=== PATIENT | male | born 1975 | race Caucasian/White ===

== ENCOUNTER 2023-01-29 20:59 | Outpatient (CLI) | payer BC, SELFPAY | END 2023-01-29 21:00 | disposition home or self-care (01) | LOC: SLEEP 21:00 | PROVIDERS: PCP Physician Assistant; Visit Provider Nurse Practitioner | DX: G47.33 Obstructive sleep apnea (adult) (pediatric) (principal) | CPT/HCPCS: 95810 ==

== ENCOUNTER 2024-04-17 11:28 | Emergency (ER) | payer BC, SELFPAY ==
[2024-04-17 11:42] VITALS: BP 124/72; PULSE 75; RESP 16; TEMP 35.9; O2SAT 97; BMI 31.1
--- NOTE | 2024-04-17 12:08 | CRLHL7_ITS ---
For Patients: As a result of the Century Cures Act, medical imaging exams and procedure reports are released immediately into your electronic medical record. You may view this report before your referring provider. If you have questions, please contact your health care provider. INDICATION: Mid back pain. COMPARISON: None Technique : Noncontrast CT thoracic spine. FINDINGS: Midthoracic curve convex to the right. In sagittal plane, normal vertebral body facet alignment. No fractures. No vertebral body loss of height. No spondylolisthesis. No fractures of the visualized ribs. No prominent disc protrusions or herniations. No spinal canal or neural foraminal narrowing at all levels of the thoracic spine. Normal paraspinal soft tissues. Visualized lungs are clear. IMPRESSION: 1. Midthoracic curve convex to the right. 2. Otherwise normal alignment. No fractures 3. No spinal canal or neural foraminal narrowing at all levels. Please note that all CT scans at this facility use dose modulation, iterative reconstruction, and/or weight-based dosing when appropriate to reduce radiation dose to as low as reasonably achievable. Dictated by Chase Davalos MD @ 04/17/2024 12:46:45 PM (Electronically Signed)
--- NOTE | 2024-04-17 12:09 | ED.GENADULT ---
HPI - General Adult General Chief complaint: Abdominal Pain Stated complaint: Abdominal pain wrap around to back Time Seen by Provider: 04/17/24 11:50 History of Present Illness HPI narrative: Patient is a 48 year white male was recently in the [place] [facility]. He had a workup for abdominal pain and back pain. He reports pain in his left flank radiating to his back but he describes it primarily starting along his paraspinous muscles in the thoracic spine no dysuria, frequency, fevers chills he is here for a 2nd opinion. He does take medicine from a chronic pain clinic for which he has got chronic musculoskeletal pain, he takes oxycodone when pain is severe and I believe [place] and at baseline. He has got a mental health history degenerative joint disease COPD history of melanoma that was apparently in his skin but not metastatic. His information from [facility] as reviewed he had a history of a CT scan and a CT angio of his abdomen showed no acute abnormalities in [place] this was in the last couple of days he was thought to have musculoskeletal pain in his left back patient had a CT scan that is reviewed of his abdomen that showed no active GI bleeding no acute abdominal or pelvic abnormality this was from 04/15/2024 patient had a chest x-ray that showed no acute changes his laboratory studies other than showing a dilutional hemoglobin from IV fluid on a follow-up visit there was unremarkable his D-dimer was negative. He presents as I mentioned to the ER with for a ?2nd opinion? he also has mentions in passing that his pain clinic doctor has ?retired and ?. He does report that he has both his pain medicines at home. Related Data Home Medications ?Medication ?Instructions ?Recorded ?Confirmed aspirin 81 mg tablet,delayed 81 mg PO DAILY 04/17/24 04/17/24 release buspirone 30 mg tablet 30 mg PO BID 04/17/24 04/17/24 duloxetine 30 mg capsule,delayed mg PO 04/17/24 release duloxetine 60 mg capsule,delayed 60 mg PO DAILY 04/17/24 04/17/24 release hydrocodone 7.5 mg-acetaminophen 1 tab PO BID PRN 04/17/24 04/17/24 325 mg tablet lorazepam 0.5 mg tablet 0.5 mg PO BID PRN anxiety 04/17/24 04/17/24 metformin 500 mg tablet,extended 1,000 mg PO BID 04/17/24 04/17/24 release 24 hr rosuvastatin 20 mg tablet 20 mg PO QPM 04/17/24 04/17/24 semaglutide (weight loss) 0.5 0.5 mg subcut 04/17/24 mg/0.5 mL subcutaneous pen injector (Garth) trazodone 50 mg tablet 50 mg PO QPM 04/17/24 04/17/24 Previous Rx's ?Medication ?Instructions ?Recorded prednisone 20 mg tablet 20 mg PO BID #10 tabs 04/17/24 Allergies Allergy/AdvReac Type Severity Reaction Status Date / Time naproxen Allergy Unknown Verified 04/17/24 11:47 Review of Systems Status of ROS: Reports: 6 or more systems reviewed and unremarkable except as noted in History and below Exam Narrative: Exam Narrative: Objective: In general patient is alert oriented does not appear in any distress his vital signs look within normal limits HEENT is unremarkable no facial asymmetry Neck is supple None he has got some mild paraspinal back tenderness along his thoracic mid and lower spine. Low back shows no findings Pulses regular Abdomen is benign soft nontender no mass or peritonitis. Extremities are no edema neurologic nonfocal in upper lower extremities. No bowel or bladder changes. Const: Vital Signs, click to edit/add: Vital Signs - 24 hr 04/17/24 11:42 Temperature 96.6 F L Pulse Rate [Pulse Oximeter] 75 Respiratory Rate 16 Blood Pressure [Ri ght Upper Arm] 124/72 Pulse Oximetry 97 Oxygen Delivery Me thod Room Air Course Vital Signs Vital signs: Initial Vital Signs Temperature 96.6 F L 04/17/24 11:42 Temperature Source Temporal Artery Scan 04/17/24 11:42 Pulse Rate 75 04/17/24 11:42 Respiratory Rate 16 04/17/24 11:42 Blood Pressure 124/72 04/17/24 11:42 Blood Pressure Mean 89 04/17/24 11:42 Blood Pressure Position Sitting 04/17/24 11:42 Pulse Oximetry 97 04/17/24 11:42 Oxygen Delivery Method Room Air 04/17/24 11:42 Vital Signs Temperature 96.6 F L 04/17/24 11:42 Pulse Rate 75 04/17/24 11:42 Respiratory Rate 16 04/17/24 11:42 Blood Pressure 124/72 04/17/24 11:42 Pulse Oximetry 97 04/17/24 11:42 Oxygen Delivery Method Room Air 04/17/24 11:42 Temperature 96.6 F L 04/17/24 11:42 Pulse Rate 75 04/17/24 11:42 Respiratory Rate 16 04/17/24 11:42 Blood Pressure 124/72 04/17/24 11:42 Pulse Oximetry 97 04/17/24 11:42 Oxygen Delivery Method Room Air 04/17/24 11:42 Medications Administered Medications: Discontinued Medications Generic Name Dose Route Start Last Admin Trade Name Laura PRN Reason Stop Dose Admin Prednisone 50 mg 04/17/24 13:04 04/17/24 13:16 Prednisone 10 Mg Tablet PO 04/17/24 13:05 50 mg ONCE ONE Administration Medical Decision Making MDM Narrative Medical decision making narrative: [age] year white male with multifactorial medical illnesses including mental healt, chronic pain, and organic medical illness presents with left thoracic back pain that he is feels radiates around little bit to his anterior abdomen. He has had CT scans within the last 48 hours that were unremarkable, laboratory studies were unremarkable as well, D-dimer negative. At this point I think it be reasonable only to get a thoracic CT to make sure he does not have a disc issue, I think some oral steroids for him might be helpful actually if this is a musculoskeletal issue or a nerve either inflammatory or anatomic compression issue in his thoracic spine. I will prescribe a Medrol Dosepak. He can continue his home pain medications, and follow-up the pain clinic as scheduled, would also recommend he sees regular doctor within the next couple of days. Will check his laboratory studies to make sure there is no obvious change in these. And disposition as above. Addendum 1:00 p.m. mild thoracic curvature, no spinal canal neural foraminal narrowing at any level. White count is normal, hemoglobin is normal, ER profile looks unremarkable. CRP is less than 0.5. I think at this point we given the patient's workup recently as well as his workup today, we could try some prednisone as this may be a thoracic nerve irritation due to inflammation, could should only be a intercostal problem as well. I think could be jones to cover him with prednisone, can continue his home pain medicines, recheck with regular doctor in 2-3 days, would also recommend he consult with the pain clinic again. He was come to this plan. Lab Data Labs: Lab Results 04/17/24 Range/Units 12:26 WBC 5.15 (4.50-11.00) K/uL RBC 4.36 (4.30-5.90) m/uL Hgb 13.1 L (13.5-17.5) gm/dL Hct 39.0 (37.0-53.0) % MCV 89 (80-100) fL MCH 30 (26-34) pg MCHC 34 (32-36) gm/dL RDW Coeff of Florentino 11.8 (11.5-15.5) % Plt Count 159 (140-440) K/uL Neut % (Auto) 66.4 (42.0-72.0) % Lymph % (Auto) 25.0 (20-44) % Miner % (Auto) 8.2 (0.0-11.0) % Eos % (Auto) 0.0 (0.0-7.0) % Baso % (Auto) 0.2 (0.0-3.0) % Neut # (Auto) 3.42 (1.7-7.0) K/uL Lymph # (Auto) 1.29 (0.90-2.90) K/uL Miner # (Auto) 0.40 (0.00-0.90) K/UL Eos # (Auto) 0.00 (0.00-0.50) K/uL Baso # (Auto) 0.01 (0.00-0.30) K/uL Abs Immat Gran (auto) 0.01 (0.00-0.30) K/uL Imm/Tot Granulo (auto) 0.2 % Sodium 140 (135-149) mmol/L Potassium 4.1 (3.6-5.1) mmol/L Chloride 104 (96-114) mmol/L Carbon Dioxide 28 (20-32) mmol/L Anion Gap 8 (7-15) mEq/L BUN 11 (5-24) mg/dL Creatinine 1.0 (0.5-1.5) mg/dL Estimated Creat Clear 97.26 Estimated GFR 93 ml/min Glucose 79 (60-115) mg/dL Lactate 1.1 (0.5-1.9) mmol/L Calcium 9.3 (8.4-10.6) mg/dL Total Bilirubin 0.4 (0.1-1.5) mg/dL Direct Bilirubin 0.2 (0.0-0.5) mg/dL AST 23 (12-35) U/L ALT 22 (4-50) U/L Alkaline Phosphatase 39 L (40-150) U/L C-Reactive Protein < 0.5 L (0.5-1.0) mg/dL Total Protein 6.6 (6.0-8.3) g/dL Albumin 4.4 (3.3-5.0) g/dL Discharge Plan Discharge Clinical Impression: Acute thoracic back pain Patient Disposition: Home, Self-Care Condition: Stable Instructions: Back Pain (ED) Additional Instructions: Light activity, stretching, prednisone 2 times a day for the next 5 days, recheck with regular doctor in the next 2-3 days, recheck with her pain doctor as mention as well. Activity Level: Light activity Discharge Diet: Regular Prescriptions: New prednisone 20 mg tablet 20 mg PO BID Qty: 10 0RF No Action trazodone 50 mg tablet 50 mg PO QPM aspirin 81 mg tablet,delayed release (DR/EC) 81 mg PO DAILY lorazepam 0.5 mg tablet 0.5 mg PO BID PRN (Reason: anxiety) hydrocodone-acetaminophen 7.5-325 mg tablet 1 tab PO BID PRN buspirone 30 mg tablet 30 mg PO BID metformin 500 mg tablet extended release 24 hr 1,000 mg PO BID rosuvastatin 20 mg tablet 20 mg PO QPM duloxetine 30 mg capsule,delayed release(DR/EC) PO duloxetine 60 mg capsule,delayed release(DR/EC) 60 mg PO DAILY Wegovy 0.5 mg/0.5 mL pen injector 0.5 mg subcut Follow Up/Referrals: Tonya Loomis PA-C [Primary Care Provider] - Stand Alone Forms: [employer] Info Instructions
[2024-04-17 12:30] LABS: Lactate* 1.1 mmol/L (0.5-1.9)
[2024-04-17 12:34] LABS: Basophils Absolute Auto 0.01 K/uL (0.00-0.30); Basophils Percent Auto 0.2 % (0.0-3.0); Hemoglobin* 13.1 gm/dL (13.5-17.5); Immature Granulocytes Abs Auto 0.01 K/uL (0.00-0.30); Immature Granulocytes Pct Auto 0.2 %; Lymphocytes Absolute Auto 1.29 K/uL (0.90-2.90); Mean Corpuscular HGB Conc 34 gm/dL (32-36); Mean Corpuscular Hemoglobin 30 pg (26-34); Mean Corpuscular Volume 89 fL (80-100); Monocytes Percent Auto 8.2 % (0.0-11.0); Neutrophils Absolute Auto 3.42 K/uL (1.7-7.0); Neutrophils Percent Auto 66.4 % (42.0-72.0); Platelet Count* 159 K/uL (140-440); RDW Coefficient of Variation % 11.8 % (11.5-15.5); Red Blood Count 4.36 m/uL (4.30-5.90); White Blood Count* 5.15 K/uL (4.50-11.00)
[2024-04-17 12:38] LABS: Slide Review Reflex No
[2024-04-17 12:49] LABS: Albumin* 4.4 g/dL (3.3-5.0); Chloride* 104 mmol/L (96-114); Potassium* 4.1 mmol/L (3.6-5.1); Sodium* 140 mmol/L (135-149)
[2024-04-17 12:51] LABS: Est. Creatinine Clearance* 97.26; Estimated Glomerular Filt Rate 93 ml/min
[2024-04-17 12:52] LABS: Alanine Aminotransferase* 22 U/L (4-50); Alkaline Phosphatase* 39 U/L (40-150); Anion Gap 8 mEq/L (7-15); Aspartate Amino Transferase* 23 U/L (12-35); Bilirubin Direct* 0.2 mg/dL (0.0-0.5); Bilirubin Total* 0.4 mg/dL (0.1-1.5); Blood Urea Nitrogen* 11 mg/dL (5-24); Carbon Dioxide* 28 mmol/L (20-32); Glucose* 79 mg/dL (60-115); Total Protein* 6.6 g/dL (6.0-8.3)
[2024-04-17 12:53] LABS: Calcium* 9.3 mg/dL (8.4-10.6)
[2024-04-17 12:55] LABS: C Reactive Protein* < 0.5 mg/dL (0.5-1.0)
[2024-04-17] MEDS: predniSONE 10 MG TABLET 50 MG PO (13:16)
== END 2024-04-17 13:25 | disposition home or self-care (01) ==
PROVIDERS: Emergency Provider Family Medicine; PCP Physician Assistant
DX: M54.6 Pain in thoracic spine (principal)
CPT/HCPCS: 36415; 72128; 80048; 80076; 83605; 85025; 86140; 99283; 99284; J7512